=== PATIENT | female | born 1990 | race Caucasian/White ===

== ENCOUNTER 2020-10-10 22:29 | Emergency (ER) | payer MEDICAID, SELFPAY ==
[2020-10-10 22:29] VITALS: BP 138/70; PULSE 71; RESP 16; TEMP 36.2; O2SAT 97; BMI 40.1
--- NOTE | 2020-10-10 23:00 | RAD_ITS ---
STUDY: X-RAY - LUMBAR SPINE REASON FOR EXAM: Female, 30 years old. Injury/Pain TECHNIQUE: 3 view(s) of the lumbar spine were obtained. COMPARISON: None FINDINGS: Normal lumbar lordosis. There is no substantial scoliosis. There is a normal alignment of the vertebrae. Normal vertebral bodies and endplates. Normal disc space heights. The soft tissue structures are unremarkable. RAD/Lumbar Spine 2 or 3 Views IMPRESSION: Normal x-ray examination of the lumbar spine. Electronically Signed: Boston Lopez DO at 23:34 EDT Tel , Service support ,
[2020-10-10] MEDS: Morphine 4 MG/ML Syringe 6 MG IM (23:32)
[2020-10-10] MEDS: cycloBENZAPRine HCl 10 MG Tablet PO (23:33)
--- NOTE | 2020-10-10 23:59 | EDS_ITS ---
HPI History of Present Illness Chief Complaint: Back Informant: patient Onset/Context/Timing Onset: Today Injury: fall Narrative Narrative: Patient is a 30-year-old female presenting from home with low back pain. Patient was checking her mall around noon today when she fell down the stairs at her apartment. She fell down half a flight of stairs. She landed on her buttocks and hit her back on the individual steps. She states they were concrete steps covered in carpet. She denies seeing her head. She has a sense of loss of conscious. She denies any anticoagulation. She has been able to ambulate since. She took Tylenol ibuprofen about an hour prior to arrival. She continues to significant pain is now having pain go upper back. She came in for further evaluation. PFSH PFSH Home Medications naproxen 500 mg PO BID PRN #20 tab 06/02/17 [Rx Last Taken Unknown] cyclobenzaprine 10 mg PO TID PRN #12 tab 10/11/20 [Rx Last Taken Unknown] ondansetron 4 mg PO Q8H PRN #12 tab 10/11/20 [Rx Last Taken Unknown] Allergy/AdvReac Type Severity Reaction Status Date / Time No Known Allergies Allergy Verified 10/10/20 22:30 no significant family history Social History Smoking Status: Never smoker [facility] ED Constitutional Constitutional ED: Denies fever(s) Eyes Eyes: Denies change in vision or eye pain ENT ENT ED: Denies dental pain, mouth lesions or nasal trauma Cardiovascular Cardiovascular: Denies chest pain or syncope Respiratory/Chest Respiratory/Chest: Denies cough or dyspnea Gastrointestinal Gastrointestinal: Denies abdominal pain or nausea Genitourinary Genitourinary ED: Denies dysuria or hematuria Musculoskeletal Musculoskeletal: Reports back pain; Denies arthralgias or myalgias Integumentary Denies Abrasions or wounds Neurologic Neurologic: Denies headache(s), paresthesias or weakness Psychiatric Psychiatric: Denies anxiety or depression Hematologic/Lymphatic Hematologic/Lymphatic: Denies easy bleeding or easy bruising EXAM Physical Exam Const Vital Signs: 10/10/20 22:29 10/11/20 00:43 Temperature 97.2 F L Temperature Source Temporal Pulse Rate 71 69 Respiratory Rate 16 18 Blood Pressure 138/70 H 128/68 H Blood Pressure Mean 92 Pulse Ox 97 96 Oxygen Delivery Method Room Air Positive well nourished and well developed General Appearance ED: well developed HEENT Reports head/scalp atraumatic, hearing grossly normal bilaterally and TM's normal bilaterally normocephalic and atraumatic; Negative for Casanova's sign, raccoon eyes or scalp tenderness Nose: no nasal discharge Tympanic Membrane ED: Yes TM's normal bilaterally Tympanic Membrane: TM's normal bilaterally Mouth ED: Yes other Mouth: other Other Details: No Malocclusion Eyes PERRL Neck full ROM Thyroid: Negative for tender Chest Wall inspection of chest normal and palpation of chest normal Chest: Negative for crepitus Resp normal respiratory effort, no retractions and clear to auscultation bilaterally Cardio regular rate and regular rhythm Jugular Venous Distention: Negative for JVD Peripheral Pulses: pulses 2+ throughout GI non-tender and non-distended Palpation: soft; Negative for guarding or rebound tenderness present Back/Spine no CVA tenderness Cervical Spine: Negative for cervical spine tenderness Thoracic Spine / Upper Back: Negative for thoracic spinal tenderness Lumbar Spine / Lower Back: lumbar spinal tenderness and paraspinal muscle tenderness left Extremity normal to inspection and full ROM Extremity Narrative: pelvis stable, no deformity Neuro oriented x3, moves all extremities and no sensory deficits noted Sensorium / Orientation: alert Motor Exam: strength 5/5 throughout Psych mental status grossly normal Skin no wounds Trauma: Negative for abrasion MDM MDM MDM Narrative Medical decision making narrative: Patient had a mechanical fall earlier today. She has low back pain. Is mostly in her left lower back, paraspinal area however she does have some midline lumbar tenderness palpation. No step-off sign. She is neuro vastly intact. Does not have symptoms consistent with cauda equina syndrome. X-ray of obtained does not show any acute fracture. Patient is given IM morphine and p.o. Flexeril in the ER. She took ibuprofen Tylenol just prior to arrival. She does have nausea associate with the morphine so she is then given Zofran. Patient be discharged home with prescription for Flexeril and Zofran. At this time I think she stable for outpatient follow-up and not require further imaging or evaluation. She is counseled return precautions. Instructed follow-up with her primary care doctor. Radiography X-Ray: Read by ED Physician, Read by Radiologist, No Fracture and Normal Bony Alignment Diagnostic Testing: Radiology Impression Lumbar Spine X-Ray 10/10/20 23:00 IMPRESSION: Normal x-ray examination of the lumbar spine. Electronically Signed: Boston LopezDO at 23:34 EDT Tel , Service support , Treatment and Re-Evaluation Comments:: IM morphine, oral Flexeril. Is then treated with Zofran after nausea with the morphine. X-ray does not show any acute fracture. Discharge home with improved pain control. Discharge Plan Triage Chief Complaint: Back ED Provider: Malika Gardner Dx/Rx/DC Orders Instructions: ED Back Sprain/Strain Prescriptions: New cyclobenzaprine 10 mg tablet 10 mg PO TID PRN (Reason: muscle spasm) Qty: 12 RF: 0 ondansetron 4 mg tablet,disintegrating 4 mg PO Q8H PRN (Reason: nausea and vomiting) Qty: 12 RF: 0 No Action naproxen 500 MG tablet 500 mg PO BID PRN Qty: 20 RF: 0 Primary Care Provider: Care Physician,No Primary Referrals: Matt Ng DO [STAFF PHYSICIAN] - Care Physician,No Primary [Primary Care Provider] - Disposition Disposition: Home, self care Discharge Date/Time: 10/11/20 00:45
[2020-10-11] MEDS: Ondansetron ODT 4 MG Tablet PO (00:02)
[2020-10-11 00:43] VITALS: BP 128/68; PULSE 69; RESP 18; O2SAT 96
== END 2020-10-11 00:45 | disposition home or self-care (01) ==
PROVIDERS: Emergency Provider Emergency Medicine
DX: S39.012A Strain of muscle, fascia and tendon of lower back, initial encounter (principal); W10.9XXA Fall (on) (from) unspecified stairs and steps, initial encounter
CPT/HCPCS: 72100; 96372; 99283